=== PATIENT | female | born 1995 | race Caucasian/White ===

== ENCOUNTER 2016-12-22 20:45 | Emergency (ER) | payer BC ==
[~2016-12-22] VITALS: Ht 165.1 cm; Wt 98.0 kg
[2016-12-22 20:56] VITALS: Ht 165.1 cm; Wt 98.0 kg
[2016-12-22] MEDS ORDERED: METHYLPREDNISOLONE 125 MG VIAL IV STA (21:03)
[2016-12-22] MEDS ORDERED: RANITIDINE HCL 50 MG/100 ML D5W IV STA (21:03)
[2016-12-22] MEDS ORDERED: DiphenhydrAMINE HCL 50 MG/ML VIAL IV STA (21:03)
[2016-12-22] MEDS ORDERED: SODIUM CHLORIDE 0.9% 500ML 500 ML IV STA (21:06)
[2016-12-22] MEDS ORDERED: EpINEphrine INJ 1MG/ML AMP 1 MG/ML AMP IM PRN (21:15)
[2016-12-22 21:21] VITALS: O2SAT 100
--- NOTE | 2016-12-22 21:36 | EMERGENCY ROOM VISIT NOTE ---
History Report prepared by Celina: Tamia Johnson Under the Supervision of: Dr. Cheo Gar M.D. First contact with patient: 20:58 Chief Complaint: ALLERGIC REACTION Stated Complaint: ALLERGIC REACTION, TROUBLE BREATHING History of Present Illness The patient is a 21 year old white female with a past medical history of anaphylaxis who presents to the ED with a cc of persistent allergic reaction beginning 1400 today. She ate some pretzels today which she had never had before. She has a history of allergy to almonds, pistachios, and tree nuts. She took some Benadryl. She did not use an EpiPen. Positive chest tightness, SOB, difficulty swallowing, lower throat tightness, hives. She admits to occasional alcohol use. She denies any recent travel or antibiotics. Her LNMP was 3 weeks ago. Source of History: patient Onset: 1400 Position: other (global) Quality: other (allergic reaction) Timing: other (persistent) Associated Symptoms: + chest pain, + SOB, + rash Note: Pt reports difficulty swallowing, throat tightness. Review of Systems See HPI for pertinent positives and negatives. A total of ten systems were reviewed and were otherwise negative. Past Medical & Surgical Medical Problems: (1) Anaphylaxis Family History No pertinent family history stated. Social History Smoking Status: Never Smoker Alcohol Use: occasionally Current/Historical Medications Scheduled Control Pills ( Control Pills), 1 TAB PO DAILY Epinephrine (Epipen 2-Juan Carlos), 1 PEN IM PRN Prednisone (Prednisone), 50 MG PO DAILY Ranitidine Hcl (Zantac 150 Maximum Streng), 1 TAB PO BID Sertraline (Zoloft), 100 MG PO DAILY Scheduled PRN Ibuprofen Tab (Advil), 400 MG PO Q6 PRN for Pain or Fever Allergies Coded Allergies: Nut Tree (Verified Allergy, Severe, ANAPHYLAXIS, HIVES, CHEST PRESSURE, ) Physical Exam Vital Signs Date Time Temp Pulse Resp B/P (MAP) Pulse Ox O2 Delivery O2 Flow Rate FiO2 12/22/16 23:29 37.0 90 18 123/77 98 12/22/16 22:45 104 20 123/77 98 Room Air 12/22/16 21:23 99 Room Air 12/22/16 21:21 100 Room Air 12/22/16 20:56 37.0 109 16 150/89 100 Room Air Physical Exam GENERAL: Awake, alert, well-appearing, NAD HENT: Normocephalic, atraumatic. Posterior pharynx is clear. EYES: Normal conjunctiva. Sclera non-icteric. NECK: Supple. No nuchal rigidity. FROM. No stridor. RESPIRATORY: CTAB, no rhonchi, wheezing, crackles CARDIAC: RRR, no MRG ABDOMEN: Soft, NTND, BS+ MSK: No chest wall TTP, no LE edema NEURO: GCS 15, CN 2-12 intact, moves all 4s on command SKIN: Trace blanching urticaria of the left neck, b/l UE, and back. Medical Decision & Procedures Medications Administered Medications (Trade) Dose Ordered Sig/Luis E Route Start Time Stop Time Status Last Admin Dose Admin Ranitidine HCl (zANTac IV) 50 mg NOW STAT IV 12/22/16 21:03 12/22/16 21:06 DC 12/22/16 21:20 50 MG Methylprednisolone Sodium Succinate (Solu-Medrol IV) 125 mg NOW STAT IV 12/22/16 21:03 12/22/16 21:06 DC 12/22/16 21:21 125 MG Epinephrine HCl (EpINEphrine INJ 1MG/ML AMP/VIAL) 0.3 mg NOW PRN IM 12/22/16 21:15 01/21/17 21:14 12/22/16 21:21 0.3 MG Diphenhydramine HCl (Benadryl Inj) 50 mg NOW STAT IV 12/22/16 21:03 12/22/16 21:06 DC 12/22/16 21:21 50 MG Sodium Chloride 500 ml @ 999 mls/hr Q31M STAT IV 12/22/16 21:06 12/22/16 21:36 DC 12/22/16 21:21 999 MLS/HR ED Course 2100: The patient was evaluated in room C3. A complete history and physical exam was performed. 2300: I reevaluated the patient. Discussed results and discharge instructions: she verbalized understanding and agreement. The patient is ready for discharge. Medical Decision Differential diagnosis: Etiologies such as allergic reaction, anaphylaxis, urticaria, Soto-Allen syndrome, toxic epidermal necrolysis, erythema multiforme, cellulitis, as well as others were entertained. The patient is a 21 year old white female with a past medical history of anaphylaxis who presents to the ED with a cc of persistent allergic reaction beginning 1400 today. Patient was seen and evaluated the bedside. Patient does have many food allergies. patient states she ate some pretzels but she has not eaten them before nexus may have been the likely culprit. patient does complain of some difficulty swallowing and mild shortness of breath and hives. patient states she took some benadryl. patient thinks that her symptoms started maybe around 2 pm. on exam patient is very well-appearing and not an extremist. patient has no wheezing on exam. patient is non-stridulous. patient did have an iv that was obtained in addition to medications that were given. patient was reassessed thereafter. Patient was feeling much improved. Patient was non- stridulous and without any wheezing. Her urticaria had resolved. She denies any itching sensation. Patient was given strict follow-up, discharge, return precautions as well as prescriptions for home. Patient agreed with plan of care. Patient was also told to avoid foods she has not tried before and to get further allergy testing. Patient safely discharged home. Medication Reconcilliation Current Medication List: was personally reviewed by me Blood Pressure Screening Patient's blood pressure: Normal blood pressure Blood pressure disposition: Did not require urgent referral Impression Primary Impression: Allergic reaction Additional Impression: Urticaria Scribe Attestation The scribe's documentation has been prepared under my direction and personally reviewed by me in its entirety. I confirm that the note above accurately reflects all work, treatment, procedures, and medical decision making performed by me. Departure Information Dispostion Home / Self-Care Prescriptions Ranitidine Hcl (ZANTAC 150 MAXIMUM STRENG) 150 Mg Tab 1 TAB PO BID for 4 Days, #8 TAB Prov: Cheo Gar M.D. 12/22/16 Prednisone (PREDNISONE) 50 Mg Tab 50 MG PO DAILY for 4 Days, #4 TAB Prov: Cheo Gar M.D. 12/22/16 Epinephrine (EPIPEN 2-JUAN CARLOS) 0.3 Mg Inj 1 PEN IM PRN for ALLERGIC REACTION, #2 PEN Prov: Cheo Gar M.D. 12/22/16 Referrals No Doctor, Assigned (PCP) Patient Instructions ED Allergic React Food, EpiPen Auto Injector Eb, [facility] Additional Instructions Please return to the emergency department if you have worsening or recurrent symptoms not amenable to at-home treatment. Please call for a follow-up appointment with her primary care physician. Please take your medications as prescribed. If you have other concerns and/or complaints please feel free to also call your primary care physician's office or return the ED for further evaluation, management, and treatment. Take prednisone in AM preferably w/ food. You have been examined and treated today on an emergency basis only. This is not a substitute for, or an effort to provide, complete comprehensive medical care. It is impossible to recognize and treat all injuries or illnesses in a single emergency department visit. It is therefore important that you follow up closely with [facility]. Call as soon as possible for an appointment. Thank you for your time and consideration. I look forward to speaking with you again soon. Please don't hesitate to call us if you have any questions. Problem Qualifiers Primary Impression: Allergic reaction Encounter type: initial encounter Qualified Codes: T78.40XA - Allergy, unspecified, initial encounter
[2016-12-22] MEDS ORDERED: SERT50TA PO (21:51)
[2016-12-22] MEDS ORDERED: BCPILLS PO (21:51)
[2016-12-22] MEDS ORDERED: IBUP-103 PO (21:51)
[2016-12-22] MEDS ORDERED: RANITAB6 PO ×2 (23:22→23:35)
[2016-12-22] MEDS ORDERED: EPP3/2 IM ×2 (23:22→23:35)
[2016-12-22] MEDS ORDERED: PRED50TA PO ×2 (23:22→23:35)
[2016-12-22 23:29] VITALS: BP 123/77; PULSE 90; TEMP 37; O2SAT 98
== END 2016-12-22 23:30 | disposition home or self-care (01) ==
LOC: C.EDB 20:49 → C.EDC 23:30
DX: T78.40XA Allergy, unspecified, initial encounter (principal); L50.9 Urticaria, unspecified; R06.02 Shortness of breath; X58.XXXA Exposure to other specified factors, initial encounter; Z79.899 Other long term (current) drug therapy